=== PATIENT | male | born 1960 | race African-American/Black ===

== ENCOUNTER 2018-05-01 15:56 | Emergency (ER) | payer SELFPAY ==
[~2018-05-01] VITALS: Ht 180.3 cm; Wt 111.1 kg
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
[2018-05-01] MEDS ORDERED: ROBAXIN-750750 MG PO (16:31)
[2018-05-01] MEDS ORDERED: IBUPROFEN600 MG ORAL (16:31)
[2018-05-01 16:39] VITALS: BP 158/118
[2018-05-01 16:40] VITALS: BP 158/118
== END 2018-05-01 16:40 | disposition home or self-care (01) ==
LOC: EMR 16:35
DX: S33.5XXA Sprain of ligaments of lumbar spine, initial encounter (principal); S39.012A Strain of muscle, fascia and tendon of lower back, initial encounter; S23.3XXA Sprain of ligaments of thoracic spine, initial encounter; S13.4XXA Sprain of ligaments of cervical spine, initial encounter; V43.52XA Car driver injured in collision with other type car in traffic accident, initial encounter; Y92.481 Parking lot as the place of occurrence of the external cause; F17.200 Nicotine dependence, unspecified, uncomplicated; Z88.5 Allergy status to narcotic agent
CPT/HCPCS: 99282